=== PATIENT | male | born 1985 | race Caucasian/White ===

== ENCOUNTER 2022-06-26 08:39 | Outpatient (REF) | payer OTHER, SELFPAY ==
[2022-06-26 09:10] LABS: MANUAL DIFF FLAG NO
[2022-06-26 09:39] LABS: Basophils Absolute Auto 0.1 X10*3/uL (0.0-0.2); Basophils Percent Auto 0.7 % (0-2); Eosinophils Absolute Auto 0.1 X10*3/uL (0.0-0.4); Eosinophils Percent Auto 1.2 % (0-4); Hematocrit 43.5 % (42.0-52.0); Hemoglobin 14.4 g/dl (14.0-18.0); Imm Gran Abs Auto 0.03 X10*3/uL (0.00-0.03); Imm Gran Pct Auto 0.3 % (0.0-0.4); Lymphocytes Absolute Auto 1.7 X10*3/uL (1.2-4.9); Lymphocytes Percent Auto 16.6 % (20-40); Mean Corpuscular HGB Conc 33.1 g/dl (31.0-36.0); Mean Corpuscular Hemoglobin 28.9 pg (27.0-33.0); Mean Corpuscular Volume 87.3 fL (80.0-98.0); Monocytes Absolute Auto 0.7 X10*3/uL (0.1-1.2); Monocytes Percent Auto 6.6 % (2-11); Neutrophils Absolute Auto 7.7 x10*3/uL (2.0-8.3); Neutrophils Percent Auto 74.6 % (45-73); Platelet Count 232 X10*3/uL (160-400); Red Blood Count 4.98 X10*6/uL (4.60-5.80); Red Cell Distribution Width 11.9 % (11.0-16.0); White Blood Count 10.3 X10*3/uL (4.8-10.8)
[2022-06-26 09:43] LABS: Estimated Average Glucose 103 mg/dL; Hemoglobin A1c % 5.2 %
[2022-06-26 10:28] LABS: Anion Gap 10 (12-20); Chloride 107 mmol/L (96-108); Thyroid Stimulating Hormone 2.24 uIU/mL (0.32-4.0); Vitamin D 25-OH Total 12.4 ng/mL (>30)
[2022-06-26 10:31] LABS: Alanine Aminotransferase 34 U/L (0-40); Albumin Level 4.4 g/dL (3.5-5.0); Alkaline Phosphatase 51 U/L (39-117); Aspartate Amino Transferase 22 U/L (5-37); Bilirubin Total 0.7 mg/dL (0.0-1.0); Blood Urea Nitrogen 10 mg/dL (9-16); Calcium 9.3 mg/dL (8.4-10.2); Carbon Dioxide 28 mmol/L (22-29); Cholesterol 175 mg/dL; Estimated Glomerular Filt Rate > 60; Glucose Random 104 mg/dL (60-115); HDL Cholesterol 46 mg/dL; LDL Cholesterol Calculated 117 mg/dl; Potassium 4.3 mmol/L (3.3-5.1); Sodium 141 mmol/L (135-145); Total Protein 6.9 g/dL (6.5-8.0); Triglycerides 63 mg/dL
[2022-06-26 11:41] LABS: Appearance Urine Clear; Color Urine Yellow; Glucose Urine UA Negative (Negative); Leukocyte Esterase Urine Negative (Negative); Nitrite Urine Negative (Negative); PH 6.5 (5.0-9.0); Urine Blood Negative (Negative); Urine Ketones Negative (Negative); Urine Protein Negative (Neg-Trace)
== END 2022-06-26 08:40 | disposition home or self-care (01) ==
LOC: HO.LAB 08:39
PROVIDERS: PCP Nurse Practitioner Acute Care; Visit Provider Nurse Practitioner Acute Care
DX: Z00.00 Encounter for general adult medical examination without abnormal findings (principal); E78.5 Hyperlipidemia, unspecified; E03.9 Hypothyroidism, unspecified; R73.03 Prediabetes; E55.9 Vitamin D deficiency, unspecified
CPT/HCPCS: 36415; 80053; 80061; 81003; 82306; 83036; 84443; 85025

== ENCOUNTER 2023-10-03 09:38 | Outpatient (REF) | payer OTHER, SELFPAY ==
[2023-10-03 10:11] LABS: MANUAL DIFF FLAG NO
[2023-10-03 10:30] LABS: Basophils Percent Auto 0.8 % (0-2); Eosinophils Absolute Auto 0.1 X10*3/uL (0.0-0.4); Eosinophils Percent Auto 1.4 % (0-4); Hematocrit 44.1 % (42.0-52.0); Hemoglobin 14.9 g/dl (14.0-18.0); Imm Gran Abs Auto 0.01 X10*3/uL (0.00-0.03); Imm Gran Pct Auto 0.2 % (0.0-0.4); Lymphocytes Absolute Auto 1.5 X10*3/uL (1.2-4.9); Lymphocytes Percent Auto 30.1 % (20-40); Mean Corpuscular HGB Conc 33.8 g/dl (31.0-36.0); Mean Corpuscular Hemoglobin 29.4 pg (27.0-33.0); Mean Corpuscular Volume 87.2 fL (80.0-98.0); Mean Platelet Volume 9.9 fL (9.4-12.4); Monocytes Absolute Auto 0.4 X10*3/uL (0.1-1.2); Neutrophils Percent Auto 59.5 % (45-73); Platelet Count 211 X10*3/uL (160-400); Red Blood Count 5.06 X10*6/uL (4.60-5.80); Red Cell Distribution Width 11.9 % (11.0-16.0); White Blood Count 5.1 X10*3/uL (4.8-10.8)
[2023-10-03 10:45] LABS: Appearance Urine Clear; Color Urine Yellow; Glucose Urine UA Negative (Negative); Leukocyte Esterase Urine Negative (Negative); Nitrite Urine Negative (Negative); PH 6.5 (5.0-9.0); Specific Gravity - Urine 1.015 (1.005-1.025); Urine Blood Negative (Negative); Urine Ketones Negative (Negative); Urine Protein Negative (Neg-Trace)
[2023-10-03 11:17] LABS: Alanine Aminotransferase 44 U/L (0-40); Albumin Level 4.5 g/dL (3.5-5.0); Alkaline Phosphatase 54 U/L (39-117); Anion Gap 12 (12-20); Aspartate Amino Transferase 27 U/L (5-37); Bilirubin Total 0.8 mg/dL (0.0-1.0); Blood Urea Nitrogen 12 mg/dL (9-16); Calcium 9.7 mg/dL (8.4-10.2); Carbon Dioxide 27 mmol/L (22-29); Chloride 106 mmol/L (96-108); Cholesterol 195 mg/dL (<200); Estimated Glomerular Filt Rate > 60; Glucose Random 108 mg/dL (60-115); HDL Cholesterol 57 mg/dL (>40); LDL Cholesterol Calculated 122 mg/dL (<100); Potassium 4.1 mmol/L (3.3-5.1); Sodium 141 mmol/L (135-145); Total Protein 7.4 g/dL (6.5-8.0); Triglycerides 82 mg/dL (<150)
[2023-10-03 11:40] LABS: Thyroid Stimulating Hormone 1.44 uIU/mL (0.32-4.0); Vitamin D 25-OH Total 27.6 ng/mL (>30)
== END 2023-10-03 09:39 | disposition home or self-care (01) ==
LOC: HO.LAB 09:38
PROVIDERS: Visit Provider Nurse Practitioner Acute Care
DX: Z00.00 Encounter for general adult medical examination without abnormal findings (principal); E55.9 Vitamin D deficiency, unspecified; E78.5 Hyperlipidemia, unspecified
CPT/HCPCS: 36415; 80053; 80061; 81003; 82306; 84443; 85025

== ENCOUNTER 2023-10-15 14:59 | Outpatient (REF) | payer OTHER, SELFPAY ==
--- NOTE | ~2023-10-15 | XR_ITS ---
EXAMINATION: XR LUMBOSACRAL SPINE CLINICAL INFORMATION: Back pain COMPARISON: None available. TECHNIQUE: Three views of the lumbosacral spine. FINDINGS: Some mild scoliosis convex to the left. Disc spaces and vertebral body heights are well preserved. Multiple calculi are seen overlying the left kidney the largest measuring about 3 mm in size. Bowel gas pattern is unremarkable. XR/XR lumbar spine 2-3V IMPRESSION: 1. Mild scoliosis. 2. Left-sided nephrolithiasis.
== END 2023-10-15 15:00 | disposition home or self-care (01) ==
LOC: HO.XRAY 14:59
PROVIDERS: Visit Provider Physician Assistant Medical
DX: M54.9 Dorsalgia, unspecified (principal)
CPT/HCPCS: 72100

== ENCOUNTER 2024-10-19 10:47 | Outpatient (REF) | payer OTHER, SELFPAY ==
[2024-10-19 11:06] LABS: MANUAL DIFF FLAG NO
[2024-10-19 11:29] LABS: Basophils Percent Auto 0.5 % (0-2); Eosinophils Absolute Auto 0.1 X10*3/uL (0.0-0.4); Eosinophils Percent Auto 1.6 % (0-4); Hematocrit 40.7 % (42.0-52.0); Hemoglobin 13.6 g/dl (14.0-18.0); Imm Gran Abs Auto 0.02 X10*3/uL (0.00-0.03); Imm Gran Pct Auto 0.4 % (0.0-0.4); Lymphocytes Absolute Auto 1.3 X10*3/uL (1.2-4.9); Lymphocytes Percent Auto 23.8 % (20-40); Mean Corpuscular HGB Conc 33.4 g/dl (31.0-36.0); Mean Corpuscular Hemoglobin 29.8 pg (27.0-33.0); Mean Corpuscular Volume 89.1 fL (80.0-98.0); Mean Platelet Volume 9.7 fL (9.4-12.4); Monocytes Absolute Auto 0.4 X10*3/uL (0.1-1.2); Monocytes Percent Auto 7.3 % (2-11); Neutrophils Absolute Auto 3.7 x10*3/uL (2.0-8.3); Neutrophils Percent Auto 66.4 % (45-73); Platelet Count 219 X10*3/uL (160-400); Red Blood Count 4.57 X10*6/uL (4.60-5.80); Red Cell Distribution Width 12.4 % (11.0-16.0); White Blood Count 5.5 X10*3/uL (4.8-10.8)
[2024-10-19 11:58] LABS: Appearance Urine Clear; Color Urine Yellow; Glucose Urine UA Negative (Negative); Leukocyte Esterase Urine Negative (Negative); Nitrite Urine Negative (Negative); Specific Gravity - Urine 1.015 (1.005-1.025); Urine Blood Negative (Negative); Urine Ketones Negative (Negative); Urine Protein Negative (Neg-Trace)
[2024-10-19 12:01] LABS: Estimated Average Glucose 103 mg/dL; Hemoglobin A1C 120.6673 umol/L; Hemoglobin A1c % 5.2 % (<6.0); Total Hemoglobin (HGBA1C) 3611.2163 umol/L
[2024-10-19 12:01] LABS: Bacteria Urine None Seen (None Seen); Hyaline Casts Urine 0-2 /LPF (0-2); RBC Urine 0-2 /HPF (0-2); Squamous Epithelial Cell Urine 0-2 /HPF (0-2); WBC Urine 0-5 /HPF (0-5)
--- OUTSIDE RECORDS SUMMARY | 2024-10-19 12:15 | XMS_ITS | Patient Health Record ---
Author Organization [facility] Address [address] [place] [id number] Care Team Providers Care Manager Residential Name Role Phone FARHAN MCGREGOR Unavailable [phone] IRMA JACOBO Unavailable [phone] ALLERGIES Allergen (clinical drug ingredient) Drug/Non Drug Allergy documented on EMR Reaction Allergy Type Onset Date Status Dust Mites Unknown Allergy Active Mold Unknown Allergy Active REASON FOR REFERRAL Reason PPSP referral needed following x-ray, Pt is experiencing discomfort due to scoliosis. Diagnosis 1 Mild scoliosis (M41. 9) Referral Organization [facility] Referring Provider First Name [facility] Referring Provider Last Name CATARINO Referring Provider Speciality Internal M edicine Referred Provider Specialty Physical Med icine General Notes faxed over completed PSSP form over to [place] at [phone], phone- [phone] Clinical Notes Unique Cervantes 11/03 01:51:35 PM > Referral Priority Routine Diagnosis 1 Varicose veins of lo wer extremity, unspecified laterality, unspecified whether complicated (I83.90) Referral Organization [facility] Referring Provider First Name [facility] Referring Provider Last Name CATARINO Referring Provider Speciality Internal M edicine Referred Provider Specialty Venereologis t General Notes filled out [facility] form and faxed , fax- [phone] Clinical Notes Unique Cervantes 03/04 02:29:51 PM >, Ayse Venegas 03/09/2024 09:29:52 AM > The patient is scheduled for an appointment on 03/20/2024 at 10:30 am Referral Priority Routine Diagnosis 1 Renal stone (N20.0) Referral Organization [facility] Referring Provider First Name [facility] Referring Provider Last Name CATARINO Referring Provider Speciality Internal M edicine Referred Provider Zack Leo Referred Provider Specialty Urology General Notes Pt needing referral for urologist due to renal stones Clinical Notes Unique Cervantes 03/04 02:38:57 PM >, faxed with [facility] [address] [place] [address] , phone- [phone], fax- [phone], Ayse Venegas 03/09/2024 11:03:16 AM > I called the office, and they informed me that they left messages on the patient's voicemail but have not received a callback Referral Priority Routine Reason [facility] Diagnosis 1 Varicose veins of lo wer extremity, unspecified laterality, unspecified whether complicated (I83.90) Referral Organization [facility] Referring Provider First Name [facility] Referring Provider Last Name [facility] Referring Provider Speciality Internal edicine Referred Provider Specialty Venereologis t General Notes faxed [facility] appt request form with attachments to , [facility] , fax - [phone] Clinical Notes Unique Cervantes 04/09 09:12:03 AM >, pt is aware referral was sent, Ayse Venegas 04/13/2024 04:16:55 PM > The office confirmed receipt of the referral and they are gonna call him soon. I also spoke with the patient and provided [facility]'s phone number , Unique Cervantes 04/16/2024 03:04:45 PM >, Pt has been scheduled for a vericose vein consult on 07/30/24 with james epstein NP. , [facility] Referral Priority Routine MEDICATIONS Medication SIG (Take, Route, Frequency, Duration) Notes Start Date End Date Status Amphetamine-Dextroampheta mine 5 MG 1 tablet in afternoon Orally once a day for 30 days 09/30/2024 Active Adderall 10 MG 1 tablet Orally cecille y for 30 days 09/30/2024 Active Fluticasone Propionate 50 MCG/ACT 1 spray in each nostril Nasally Once a day for 30 day(s) Not-Taking PROBLEMS Problem Type ICD Code Onset Dates Problem Status W/U Status Risk SNOMED Code Notes Problem Vitamin D deficiency, unspecified (E55.9) Active confirmed Vitamin D deficiency (66465279) Problem Encounter for general adult medical examination without abnormal findings (Z00.00) Active confirmed Adult heal th examination (960365509) Problem Contact with and (suspected) exposure to other viral communicable diseases (Z20.828) Active confirmed Exposure to communicable disease (759569151) Problem Prediabetes (R73.03) Active confirmed Prediabetes (047122157) Problem Hyperlipidemia, unspecified hyperlipidemia type (E78.5) Active confirmed Hyperlipidaemia (31160884) Problem Acquired hypothyroidism (E03.9) Active confirmed 368501612 Problem Hypothyroidism, unspecified type (E03.9) Active confirmed Hypothyroidism (77784856) Problem Varicose veins of lower extremity, unspecified laterality, unspecified whether complicated (I83.90) Active confirmed 54111705 Problem Seasonal allergies (J30.2) Active confirmed Seasonal a llergy (098767501) Problem Renal stone (N20.0) Active confirmed 06903426 Problem Type 2 diabetes mellitus without complication, without long-term current use of insulin (E11.9) Active confirmed 575027104 Problem Dyslipidemia (E78.5) Active confirmed 647733937 Problem Attention deficit hyperactivity disorder (ADHD), predominantly hyperactive type (F90.1) Active confirmed 068282404 Problem Attention deficit disorder (ADD) in adult (F98.8) Active confirmed Adult attentio n deficit hyperactivity disorder (disorder) (030889848) Problem Seasonal allergic rhinitis, unspecified trigger (J30.2) Active confirmed 478550142 Problem Acute sore throat (J02.9) Active confirmed Acute pharyngit is (755995190) Problem Mild scoliosis (M41.9) Active confirmed 789546825 VITAL SIGNS Heart Rate 88 /min 07/13/2024 Blood pressure diastolic 82 mm Hg 07/13/2024 Oximetry 99 % 07/13/2024 Height 69 in 07/13/2024 Blood pressure systolic 124 mm Hg 07/13/2024 Weight 181 lbs 07/13/2024 BMI 26.73 kg/m2 07/13/2024 Encounters Encounter Location Date Provider Diagnosis [facility] [address] [facility] [address] [place] [address] 01/09/2024 FARHAN MCGREGOR [place] [address] [address] 01/06/2024 FARHAN MCGREGOR Attention deficit hyperactivity disorder (ADHD), predominantly hyperactive type F90.1 ; Seasonal allergic rhinitis, unspecified trigger J30.2 ; Hyperlipidemia, unspecified hyperlipidemia type E78.5 and Type 2 diabetes mellitus without complication, without long-term current use of insulin E11.9 [place] [address] 01/31/2024 FARHAN MCGREGOR Attention deficit hyperactivity disorder (ADHD), predominantly hyperactive type F90.1 ; Seasonal allergic rhinitis, unspecified trigger J30.2 ; Hyperlipidemia, unspecified hyperlipidemia type E78.5 ; Acute sore throat J02.9 and Contact with and (suspected) exposure to other viral communicable diseases Z20.828 [place] [address] 07/13/2024 FARHAN MCGREGOR Encounter for genera l adult medical examination without abnormal findings Z00.00 ; Attention deficit hyperactivity disorder (ADHD), predominantly hyperactive type F90.1 ; Nasal septal deviation J34.2 ; Seasonal allergic rhinitis, unspecified trigger J30.2 and Hyperlipidemia, unspecified hyperlipidemia type E78.5 [place] [address] 10/22/2023 FARHAN MCGREGOR Encounter for genera l adult medical examination without abnormal findings Z00.00 and Seasonal allergic rhinitis, unspecified trigger J30.2 [place] [address] 11/01/2023 FARHAN MCGREGOR [place] [address] 11/22/2023 FARHAN MCGREGOR Seasonal allergic rhinitis, unspecified trigger J30.2 and Encounter for general adult medical examination without abnormal findings Z00.00 [address] 12/26/2023 FARHAN MCGREGOR [facility] [address] 12/30/2023 FARHAN MCGREGOR Seasonal allergic rhinitis, unspecified trigger J30.2 and Encounter for general adult medical examination without abnormal findings Z00.[address] [facility] [address] [facility] [address] [place] [address] 01/31/2024 FARHAN BORHOT Encounter for genera l adult medical examination without abnormal findings Z00.00 and Seasonal allergic rhinitis, unspecified trigger J30.[address] [facility] [address] [facility] [address] [place] [address] 03/04/2024 FARHAN BORHOT Encounter for genera l adult medical examination without abnormal findings Z00.00 and Seasonal allergic rhinitis, unspecified trigger J30.2 [facility] [address] [place] [address] 03/06/[address] [facility] [address] [facility] [address] [facility] [address] [place] [address] 04/03/2024 FARHAN BORHOT Encounter for genera l adult medical examination without abnormal findings Z00.00 and Seasonal allergic rhinitis, unspecified trigger J30.2 [address] [facility] [address] [place] [address] 04/07/[address] [facility] [facility] [address] [facility] [address] [place] [address] 05/07/2024 FARHAN BORHOT Encounter for genera l adult medical examination without abnormal findings Z00.00 [address] [facility] [address] [place] [address] 05/07/2024 FARHAN BORHOT Encounter for genera l adult medical examination without abnormal findings Z00.[address] [facility] [address] [facility] [address] [place] [address] 06/09/2024 FARHAN BORHOT Encounter for genera l adult medical examination without abnormal findings Z00.[address] [facility] [address] [facility] [address] [place] [address] 06/11/2024 FARHAN BORHOT Encounter for genera l adult medical examination without abnormal findings Z00.00 [facility] [address] [place] [address] 08/10/[address] [facility] [address] [facility] [address] [facility] [address] [place] [address] 07/23/2024 JACOBO SOLIS Encounter for genera l adult medical examination without abnormal findings Z00.[address] [facility] [address] [address] 07/26/2024 FARHAN BORHOT Seasonal allergic rhinitis, unspecified trigger J30.[address] [facility] [address] [place] [address] 08/26/2024 FARHAN BORHOT Seasonal allergic rhinitis, unspecified trigger J30.[address] [facility] [address] [address] 08/26/2024 FARHAN BORHOT Encounter for genera l adult medical examination without abnormal findings Z00.[address] [facility] [address] [place] [address] 09/30/2024 FARHAN BORHOT Seasonal allergic rhinitis, unspecified trigger J30.[address] [facility] [address] [place] [address] 09/30/2024 FARHAN BORHOT Encounter for genera l adult medical examination without abnormal findings Z00.00 ASSESSMENTS Encounter Date Diagnosis Assessment Notes Treatment Notes Treatment Clinical Notes Section Notes 10/22/2023 Encounter for general adult medical examination without abnormal findings (ICD-10 - Z00.00) 11/22/2023 Seasonal allergic rhinitis, unspecified trigger (ICD-10 - J30.2) 12/30/2023 Seasonal allergic rhinitis, unspecified trigger (ICD-10 - J30.2) 01/06/2024 Attention deficit hyperactivity disorder (ADHD), predominantly hyperactive type (ICD-10 - F90.1) Chronic conditions are stable [facility] Prescription monitoring program reviewed Including controlled substances prescriptive history Will see him back in June for physical with labs Of note, some information is being carried forward from prior records for informational purposes only and is being cited so that efficiency, safety and quality of the patient's care is not compromised This note was prepared using voice recognition software and direct typing Please excuse inadvertent food science technician or typing errors, or uncorrected word substitutions Although every attempt has been made by the provider to proofread this document, occasional misspellings and typographical errors may still be present Due to the previous pandemic, and the use of personal protective equipment (PPE) This may decrease voice recognition accuracy Inadvertent food science technician errors may occur 01/06/2024 Seasonal allergic rhinitis, unspecified trigger (ICD-10 - J30.2) Chronic conditions are stable [facility] Prescription monitoring program reviewed Including controlled substances prescriptive history Will see him back in June for physical with labs Of note, some information is being carried forward from prior records for informational purposes only and is being cited so that efficiency, safety and quality of the patient's care is not compromised This note was prepared using voice recognition software and direct typing Please excuse inadvertent food science technician or typing errors, or uncorrected word substitutions Although every attempt has been made by the provider to proofread this document, occasional misspellings and typographical errors may still be present Due to the previous pandemic, and the use of personal protective equipment (PPE) This may decrease voice recognition accuracy Inadvertent food science technician errors may occur 01/31/2024 Attention deficit hyperactivity disorder (ADHD), predominantly hyperactive type (ICD-10 - F90.1) Acute Concerns/Problem List: 01/31/2024 Chronic conditions are stable ENT referral for septal deviation left-sided 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 Urology for renal stones Discussed supportive care likely viral syndrome [facility] Prescription monitoring program reviewed Including controlled substances prescriptive history Will see him back in June for physical with labs Of note, some information is being carried forward from prior records for informational purposes only and is being cited so that efficiency, safety and quality of the patient's care is not compromised This note was prepared using voice recognition software and direct typing Please excuse inadvertent food science technician or typing errors, or uncorrected word substitutions Although every attempt has been made by the provider to proofread this document, occasional misspellings and typographical errors may still be present Due to the previous pandemic, and the use of personal protective equipment (PPE) This may decrease voice recognition accuracy Inadvertent food science technician errors may occur 01/31/2024 Seasonal allergic rhinitis, unspecified trigger (ICD-10 - J30.2) Acute Concerns/Problem List: 01/31/2024 Chronic conditions are stable ENT referral for septal deviation left-sided 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 Urology for renal stones Discussed supportive care likely viral syndrome [facility] Prescription monitoring program reviewed Including controlled substances prescriptive history Will see him back in June for physical with labs Of note, some information is being carried forward from prior records for informational purposes only and is being cited so that efficiency, safety and quality of the patient's care is not compromised This note was prepared using voice recognition software and direct typing Please excuse inadvertent food science technician or typing errors, or uncorrected word substitutions Although every attempt has been made by the provider to proofread this document, occasional misspellings and typographical errors may still be present Due to the previous pandemic, and the use of personal protective equipment (PPE) This may decrease voice recognition accuracy Inadvertent food science technician errors may occur 01/31/2024 Encounter for general adult medical examination without abnormal findings (ICD-10 - Z00.00) 03/04/2024 Encounter for general adult medical examination without abnormal findings (ICD-10 - Z00.00) 04/03/2024 Encounter for general adult medical examination without abnormal findings (ICD-10 - Z00.00) 05/07/2024 Encounter for general adult medical examination without abnormal findings (ICD-10 - Z00.00) 05/07/2024 Encounter for general adult medical examination without abnormal findings (ICD-10 - Z00.00) 06/09/2024 Encounter for general adult medical examination without abnormal findings (ICD-10 - Z00.00) 06/11/2024 Encounter for general adult medical examination without abnormal findings (ICD-10 - Z00.00) 07/13/2024 Encounter for general adult medical examination without abnormal findings (ICD-10 - Z00.00) Plans on potential septoplasty and early 2024 Did see ENT surgery as well as will be seeing [facility] ADHD controlled on medications _update labs please Of note, some information is being carried forward from prior records for informational purposes only and is being cited so that efficiency, safety and quality of the patient's care is not compromised This note was prepared using voice recognition software and direct typing Please excuse inadvertent food science technician or typing errors, or uncorrected word substitutions Although every attempt has been made by the provider to proofread this document, occasional misspellings and typographical errors may still be present Due to the previous pandemic, and the use of personal protective equipment (PPE) This may decrease voice recognition accuracy Inadvertent food science technician errors may occur 07/23/2024 Encounter for general adult medical examination without abnormal findings (ICD-10 - Z00.00) 07/26/2024 Seasonal allergic rhinitis, unspecified trigger (ICD-10 - J30.2) 08/26/2024 Seasonal allergic rhinitis, unspecified trigger (ICD-10 - J30.2) 08/26/2024 Encounter for general adult medical examination without abnormal findings (ICD-10 - Z00.00) 09/30/2024 Seasonal allergic rhinitis, unspecified trigger (ICD-10 - J30.2) 09/30/2024 Encounter for general adult medical examination without abnormal findings (ICD-10 - Z00.00) 07/13/2024 Attention deficit hyperactivity disorder (ADHD), predominantly hyperactive type (ICD-10 - F90.1) Plans on potential septoplasty and early 2024 Did see ENT surgery as well as will be seeing [facility] ADHD controlled on medications _update labs please Of note, some information is being carried forward from prior records for informational purposes only and is being cited so that efficiency, safety and quality of the patient's care is not compromised This note was prepared using voice recognition software and direct typing Please excuse inadvertent food science technician or typing errors, or uncorrected word substitutions Although every attempt has been made by the provider to proofread this document, occasional misspellings and typographical errors may still be present Due to the previous pandemic, and the use of personal protective equipment (PPE) This may decrease voice recognition accuracy Inadvertent food science technician errors may occur 07/13/2024 Nasal septal deviation (ICD-10 - J34.2) Plans on potential septoplasty and early 2024 Did see ENT surgery as well as will be seeing [facility] ADHD controlled on medications _update labs please Of note, some information is being carried forward from prior records for informational purposes only and is being cited so that efficiency, safety and quality of the patient's care is not compromised This note was prepared using voice recognition software and direct typing Please excuse inadvertent food science technician or typing errors, or uncorrected word substitutions Although every attempt has been made by the provider to proofread this document, occasional misspellings and typographical errors may still be present Due to the previous pandemic, and the use of personal protective equipment (PPE) This may decrease voice recognition accuracy Inadvertent food science technician errors may occur 04/03/2024 Seasonal allergic rhinitis, unspecified trigger (ICD-10 - J30.2) 03/04/2024 Seasonal allergic rhinitis, unspecified trigger (ICD-10 - J30.2) 01/31/2024 Seasonal allergic rhinitis, unspecified trigger (ICD-10 - J30.2) 01/31/2024 Hyperlipidemia, unspecified hyperlipidemia type (ICD-10 - E78.5) Acute Concerns/Problem List: 01/31/2024 Chronic conditions are stable ENT referral for septal deviation left-sided 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 Urology for renal stones Discussed supportive care likely viral syndrome [facility] Prescription monitoring program reviewed Including controlled substances prescriptive history Will see him back in June for physical with labs Of note, some information is being carried forward from prior records for informational purposes only and is being cited so that efficiency, safety and quality of the patient's care is not compromised This note was prepared using voice recognition software and direct typing Please excuse inadvertent food science technician or typing errors, or uncorrected word substitutions Although every attempt has been made by the provider to proofread this document, occasional misspellings and typographical errors may still be present Due to the previous pandemic, and the use of personal protective equipment (PPE) This may decrease voice recognition accuracy Inadvertent food science technician errors may occur 01/06/2024 Hyperlipidemia, unspecified hyperlipidemia type (ICD-10 - E78.5) Chronic conditions are stable [facility] Prescription monitoring program reviewed Including controlled substances prescriptive history Will see him back in June for physical with labs Of note, some information is being carried forward from prior records for informational purposes only and is being cited so that efficiency, safety and quality of the patient's care is not compromised This note was prepared using voice recognition software and direct typing Please excuse inadvertent food science technician or typing errors, or uncorrected word substitutions Although every attempt has been made by the provider to proofread this document, occasional misspellings and typographical errors may still be present Due to the previous pandemic, and the use of personal protective equipment (PPE) This may decrease voice recognition accuracy Inadvertent food science technician errors may occur 12/30/2023 Encounter for general adult medical examination without abnormal findings (ICD-10 - Z00.00) 10/22/2023 Seasonal allergic rhinitis, unspecified trigger (ICD-10 - J30.2) 11/22/2023 Encounter for general adult medical examination without abnormal findings (ICD-10 - Z00.00) 01/06/2024 Type 2 diabetes mellitus without complication, without long-term current use of insulin (ICD-10 - E11.9) Chronic conditions are stable [facility] Prescription monitoring program reviewed Including controlled substances prescriptive history Will see him back in June for physical with labs Of note, some information is being carried forward from prior records for informational purposes only and is being cited so that efficiency, safety and quality of the patient's care is not compromised This note was prepared using voice recognition software and direct typing Please excuse inadvertent food science technician or typing errors, or uncorrected word substitutions Although every attempt has been made by the provider to proofread this document, occasional misspellings and typographical errors may still be present Due to the previous pandemic, and the use of personal protective equipment (PPE) This may decrease voice recognition accuracy Inadvertent food science technician errors may occur 01/31/2024 Acute sore throat (ICD-10 - J02.9) Acute Concerns/Problem List: 01/31/2024 Chronic conditions are stable ENT referral for septal deviation left-sided 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 Urology for renal stones Discussed supportive care likely viral syndrome [facility] Prescription monitoring program reviewed Including controlled substances prescriptive history Will see him back in June for physical with labs Of note, some information is being carried forward from prior records for informational purposes only and is being cited so that efficiency, safety and quality of the patient's care is not compromised This note was prepared using voice recognition software and direct typing Please excuse inadvertent food science technician or typing errors, or uncorrected word substitutions Although every attempt has been made by the provider to proofread this document, occasional misspellings and typographical errors may still be present Due to the previous pandemic, and the use of personal protective equipment (PPE) This may decrease voice recognition accuracy Inadvertent food science technician errors may occur 07/13/2024 Seasonal allergic rhinitis, unspecified trigger (ICD-10 - J30.2) Plans on potential septoplasty and early 2024 Did see ENT surgery as well as will be seeing [facility] ADHD controlled on medications _update labs please Of note, some information is being carried forward from prior records for informational purposes only and is being cited so that efficiency, safety and quality of the patient's care is not compromised This note was prepared using voice recognition software and direct typing Please excuse inadvertent food science technician or typing errors, or uncorrected word substitutions Although every attempt has been made by the provider to proofread this document, occasional misspellings and typographical errors may still be present Due to the previous pandemic, and the use of personal protective equipment (PPE) This may decrease voice recognition accuracy Inadvertent food science technician errors may occur 07/13/2024 Hyperlipidemia, unspecified hyperlipidemia type (ICD-10 - E78.5) Plans on potential septoplasty and early 2024 Did see ENT surgery as well as will be seeing [facility] ADHD controlled on medications _update labs please Of note, some information is being carried forward from prior records for informational purposes only and is being cited so that efficiency, safety and quality of the patient's care is not compromised This note was prepared using voice recognition software and direct typing Please excuse inadvertent food science technician or typing errors, or uncorrected word substitutions Although every attempt has been made by the provider to proofread this document, occasional misspellings and typographical errors may still be present Due to the previous pandemic, and the use of personal protective equipment (PPE) This may decrease voice recognition accuracy Inadvertent food science technician errors may occur 01/31/2024 Contact with and (suspected) exposure to other viral communicable diseases (ICD-10 - Z20.828) Acute Concerns/Problem List: 01/31/2024 Chronic conditions are stable ENT referral for septal deviation left-sided 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 Urology for renal stones Discussed supportive care likely viral syndrome [facility] Prescription monitoring program reviewed Including controlled substances prescriptive history Will see him back in June for physical with labs Of note, some information is being carried forward from prior records for informational purposes only and is being cited so that efficiency, safety and quality of the patient's care is not compromised This note was prepared using voice recognition software and direct typing Please excuse inadvertent food science technician or typing errors, or uncorrected word substitutions Although every attempt has been made by the provider to proofread this document, occasional misspellings and typographical errors may still be present Due to the previous pandemic, and the use of personal protective equipment (PPE) This may decrease voice recognition accuracy Inadvertent food science technician errors may occur PLAN OF TREATMENT Pending Test Test Name Order Date 25OH VITAMIN D 06/12/2022 25OH VITAMIN D 07/12/2023 CBC (COMPLETE BLOOD COUNT) 06/12/2022 CBC (COMPLETE BLOOD COUNT) WITH DIFF COMPREHENSIVE METABOLIC PANEL 07/12/2023 COMPREHENSIVE METABOLIC PANEL 06/12/2022 COMPREHENSIVE METABOLIC PANEL 01/06/2024 HEMOGLOBIN A1C 06/12/2022 LIPID PANEL 06/12/2022 LIPID PANEL 07/12/2023 LIPID PANEL 01/06/2024 TSH 07/12/2023 TSH 06/12/2022 URINALYSIS W/REFLEX CULTURE 07/12/2023 XR C-Spine 4+ Views 05/03/2022 CBC (INCLUDES DIFF/PLT) 01/06/2024 URINALYSIS, COMPLETE 01/06/2024 HEMOGLOBIN A1c 01/06/2024 TSH 01/06/2024 VITAMIN D, 1,25 DIHYDROXY LC/MS/MS 01/05 COMPLETE URINALYSIS 06/12/2022 Shoulder Min 2 Views Left 07/10/2022 Elbow Min 3 Views Left 07/10/2022 Next Appt Details Provider Name:FARHAN MCGREGOR, 11/24/2024 11:15:00 AM, [address] [facility], [facility] [[email or web address] [address], [place], [address], Insurance Providers Payer Name Payer Address Payer Phone Subscriber Number Group Number Insured Name Patient Relationship to Insured Coverage Start Date Coverage End Date Cigna [address] [facility] [place] [address] [id number] KORINA CANNON Self - patient is the insured 2022 MEDICAL (GENERAL) HISTORY Medical History History ICD Code Attention deficit disorder (ADD) in adul t F98.8 Seasonal allergies J30.2
--- OUTSIDE RECORDS SUMMARY | 2024-10-19 12:15 | XMS_ITS ---
Author Organization [employer] [facility] Address [address] [place] [address] Care Team Providers Care Molding Associate Name Role Phone FARHAN MCGREGOR Unavailable [phone] REASON FOR VISIT New Refill Request MEDICATIONS Medication SIG (Take, Route, Fr equency, Duration) Notes Start Date End Date Status Adderall 10 MG 1 tablet Orally daily for 30 days 0 09/30/2024 Active Encounters Encounter Location Date Provider Diagnosis [address] [address] 09/30/2024 FARHAN CUEVASYrn Seasonal allergic rhinitis, unspecified trigger J30.2 ASSESSMENTS Encounter Date Diagnosis Assessment Notes Treatment Notes Treatment Clinical Notes Section Notes 09/30/2024 Seasonal allergic rhinitis, unspecified trigger (ICD-10 - J30.2) PLAN OF TREATMENT Medication Medication Name Sig Start Date Stop Date Notes Adderall 10 MG 1 tablet Orally daily for 30 days Next Appt Details Provider Name:FARHAN MCGREGOR, 11/24/2024 11:15:00 AM, [address] [place] [address], [address], Progress Notes * GENEVIEVE CANNONOB:[birth year] (39 yo M)Acc No.[id number]:09/30/2024 Patient:??KORINA CANNON :1985?Age:39 Y?Sex:Trupti monique Address:[address] [place] [address] [address], [place], [place] * Refills?? Refill Adderall Tablet, 10 MG, Orally, 30 Tablet, 1 tablet, daily, 30 days, Refills=0 * true * Date:??
--- OUTSIDE RECORDS SUMMARY | 2024-10-19 12:15 | XMS_ITS ---
Author Organization [employer] [facility] Address [address] [place] [address] Care Team Providers Care Drier Name Role Phone FILIBERTOFARHAN MORALES Unavailable [phone] REASON FOR VISIT New Refill Request MEDICATIONS Medication SIG (Take, Route, Frequency, Duration) Notes Start Date End Date Status Amphetamine-Dextroamphetam ine 5 MG 1 tablet in afternoon Orally once a day for 30 days 09/30/2024 Active Encounters Encounter Location Date Provider Diagnosis [facility] [address] [facility] [address] [place] [address] 09/30/2024 FARHAN MCGREGOR Encounter for genera l adult medical examination without abnormal findings Z00.00 ASSESSMENTS Encounter Date Diagnosis Assessment Notes Treatment Notes Treatment Clinical Notes Section Notes 09/30/2024 Encounter for general adult medical examination without abnormal findings (ICD-10 - Z00.00) PLAN OF TREATMENT Medication Medication Name Sig Start Date Stop Date Notes Amphetamine-Dextroamphetamin e 5 MG 1 tablet in afternoon Orally once a day for 30 days 09/30/2024 Next Appt Details Provider Name:FARHAN MCGREGOR, 11/24/2024 11:15:00 AM, [address] [facility], [facility] [address], [place], [address], Progress Notes * NAVEEN CANNON:[birth year] (39 yo M)Acc No.[id number]:09/30/2024 Patient:??DAVISBENJAMINEL :1985?Age:39 Y?Sex:Trupti monique Address:[address] [place] [address], [address], [place], [place] * Refills?? Refill Amphetamine-Dextroamphetamine Tablet, 5 MG, Orally, 30 Tablet, 1 tablet in afternoon, once a day, 30 days, Refills=0 * true * Date:??
--- OUTSIDE RECORDS SUMMARY | 2024-10-19 12:16 | XMS_ITS ---
Author Organization [employer] [facility] Address [address] [place] [address] Care Team Providers Care Career Technical Education Teacher Name Role Phone FILIBERTOFARHAN MORALES Unavailable [phone] REASON FOR VISIT New Refill Request MEDICATIONS Medication SIG (Take, Route, Frequency, Duration) Notes Start Date End Date Status Amphetamine-Dextroamphetam ine 5 MG 1 tablet in afternoon Orally once a day for 30 days 08/26/2024 Active Encounters Encounter Location Date Provider Diagnosis [facility] [address] [facility] [address] [place] [address] 08/26/2024 FARHAN BORCARMEN Encounter for genera l adult medical examination without abnormal findings Z00.00 ASSESSMENTS Encounter Date Diagnosis Assessment Notes Treatment Notes Treatment Clinical Notes Section Notes 08/26/2024 Encounter for general adult medical examination without abnormal findings (ICD-10 - Z00.00) PLAN OF TREATMENT Medication Medication Name Sig Start Date Stop Date Notes Amphetamine-Dextroamphetamin e 5 MG 1 tablet in afternoon Orally once a day for 30 days 08/26/2024 Next Appt Details Provider Name:FARHAN MCGREGOR, 11/24/2024 11:15:00 AM, [address] [facility], [place] [address], [place], [address], Progress Notes * NAVEEN CANNON:[birth year] (39 yo M)Acc No.[id number]:08/26/2024 Patient:??DAVISBENJAMINEL :1985?Age:39 Y?Sex:Trupti monique Address:[address] [place] [address], [address], [place], [place] * Refills?? Refill Amphetamine-Dextroamphetamine Tablet, 5 MG, Orally, 30 Tablet, 1 tablet in afternoon, once a day, 30 days, Refills=0 * true * Date:??
--- OUTSIDE RECORDS SUMMARY | 2024-10-19 12:16 | XMS_ITS | Data Portability ---
Author Organization [place] - [facility] Address [address] [facility] [address] [place] [address] Care Team Providers Care Floor Nurse Name Role Phone FILIBERTOFARHAN MORALES Primary Care Provider Assessment Encounter Date Assessment Date Assessment LastModified by Organization Details LastModified Time 05/13/2024 05/13/2024 Patient is frustrated with his ongoing snoring. His recent sleep study was benign. Physical exam shows a columella moderately to the left and a high septal deflection to the right. I do not believe a septoplasty at this time would resolve the majority of his symptoms. He feels his snoring and sleep is made worse with significant headaches he experiences on the left side. He notes the headaches can be triggered and made worse during his physical therapy with various maneuvers where his head is positioned low or extended over a medicine ball. This may reflect tension headache, migraine variant. He also describes headaches are associated with retro-orbital pain and nasal congestion. I would like to proceed with a CT sinus to initially evaluate underlying anatomy. If there is no evidence of sinusitis he may benefit from migraine management, adjusting his physical therapy regimen to address tension headaches or may be working with neurology. For his snoring we will discuss in the future after sinus results possibility of oral appliance d[facility]os[facility] Not available 05/13/2024 16:04:47 06/15/2024 06/15/2024 He notes the headaches can be triggered and made worse during his physical therapy with various maneuvers where his head is positioned low or extended over a medicine ball. This may reflect tension headache, migraine variant. He also describes headaches are associated with retro-orbital pain and nasal congestion. CT sinus today showed no paranasal sinus disease. There was a prominent septal defection to right. I have offered for him to meet with one of my colleagues to discuss septoplasty. He is my [id number] and of course I would not perform a surgery for him. Snoring could consider oral appliance. [email or web address] Not available 06/15/2024 12:15:18 Plan of Treatment Reminders Order Date Submit Date Provider Last Modified By Organization Details Last Modified Time Details Appointments None recorded. Lab None recorded. Referral None recorded. Procedures None recorded. Surgeries None recorded. Imaging CT, sinuses, w/o contrast - xoran ct sinus 2023 [facility] [address], [address], 12:15:32 CT, sinuses, w/o contrast - xoran ct sinus 2023 [email or web address] [facility] [address], [address], 09:56:59 Medication Orders None recorded. Patient TargetsNo targets recorded. Patient InstructionsNo instructions recorded. Reason for Referral None Reported. Results Created Date Observation Date Name Description Value Unit Range Abnormal Flag Note LastModifiedBy Organization Detail LastModifiedTime 05/08/2004/21/2024 sleep study , diagn ostic (PROC ) No observ ation record ed. [facility] [address], [place], [address], 05/15/2024 12:58:12 05/13/20 CT, sinus es, w/o contr ast No observ ation record ed. [facility] [address], [address], 05/13/2024 15:58:28 06/13/20 CT, sinus es, w/o contr ast No observ ation record ed. [email or web address] [address], [address], 06/15/2024 12:15:18 06/20/20 24 06/15/2024 CT, sinus es, w/o contr ast No observ ation record ed. [facility] [address], [place], [address], 06/22/2024 08:34:59 Result Notes None recorded. Problems Name Problem SNOMED Code Status Onset Date Resolution Date Notes Provider Name and Address Organization Details Recorded Time Acute pansinusitis 1441812 Active 2020 Acute pansin usitis , unspec ified; Note: Date Diagno sed: 2020 5:37 PM (J01.4 0) Not Available [facility] 03:10:20 Tension-type headache 282022725 Active 2023 RAMY MELGAR MD [address] [facility] [place] [address], [place], [address] , [place] - [facility] [place] [facility] 15:57:31 Snoring 57397338 Active 2023 RAMY MELGAR MD [address] [facility] [place] [address], [place], [address] , [place] - [facility] [place] [facility] 15:57:45 Deviated nasal septum 275457723 Active 2023 RAMY MELGAR MD [address] [facility] [place] [address], [place], [address] , [place] - [facility] [place] [facility] 11:56:17 Hypertrophy of nasal turbinates 23532211 Active 2023 ASUNCION SAUCEDO MD [address] [facility] [place],[address], [place], [address] , [place] [facility] [place] 13:36:45 Nasal congestion 01811321 Active 2023 ASUNCION SAUCEDO MD [address] [facility] [place],[address], [place], [address] , [place] [facility] [place] 16:42:55 Problem Notes None recorded. Procedures Surgical History Date Name Laterality Status Provider Name and Address Organization Details Recorded Time 06/15/2024 CT sinus - Xoran completed RAMY MELGAR MD [address] [place] [address], [address], [place] - [facility] 06/13/2024 21:38:27 Imaging Results Imaging Date Name Status LastModified by [facility] Details LastModified Time 04/21/2024 sleep study, diagnostic (PROC) completed [facility] [place] [address] [place] [address], [place], [address], 05/15/2024 12:58:12 05/13/2024 CT, sinuses, w/o contrast completed [facility] [address], [address], 05/13/2024 15:58:28 06/13/2024 CT, sinuses, w/o contrast completed [facility] [address], [address], 06/15/2024 12:15:18 06/15/2024 CT, sinuses, w/o contrast [facility] [address], [address], 06/22/2024 08:34:59 Procedure Notes None recorded. Medical Equipment None Reported. Allergies No known drug allergies Medications Name Sig Start Date Stop Date Status Note LastModified by Organization Details LastModified Time cyclobenz aprine 10 mg tablet PLEASE SEE ATTACHED FOR DETAILED DIRECTIO NS 05/13 completed Not Available Not Available Not Available Augmentin 875 mg-125 mg tablet by mouth 05/13 completed Medicati on ID: [id number] D uration Value: 10 Brand Name: Augmenti n Send Method: E-Prescr ibed Sub s Allowed: subs OK Speci al Instruct ion: 1 po bid for 10 days Med icationG enericNa me: Augmenti n Not Available Not Available Not Available ibuprofen 800 mg tablet TAKE 1 TABLET (ORAL) 3 TIMES PER DAY (PAIN) FOR 10 DAYS active Not Available Not Available No t Available dextroamp hetamine- amphetami ne 10 mg tablet TAKE 1 TABLET BY MOUTH IN AFTERNOO N ONCE A DAY active Not Available Not Available No t Available Claritin- D 24 Hour 10 mg-240 mg tablet,ex tended release 05/13 completed Medicati on ID: [id number] B rand Name: Claritin -D 24 Hour Sen d Method: E-Prescr ibed Sub s Allowed: subs OK Medic ationGen ericName : Claritin -D 24 Hour Not Available Not Available Not Available Mapap (acetamin ophen) 500 mg capsule TAKE 2 CAPSULE (ORAL) EVERY 6 HOURS FOR 10 DAYS 05/13 completed Not Available Not Available Not Available dextromet horphan-g uaifenesi n ER 60 mg-1,200 mg tab,exten d release,1 2hr Take 1 tablet by mouth twice a day as needed 05/13 completed Medicati on ID: [id number] D uration Value: 7 Prescri bed By Name: Sowmya Lagunas nd Name: dextrome thorphan -guaifen esin Sen d Method: E-Prescr ibed Sub s Allowed: subs OK Medic ationGen ericName : dextrome thorphan -guaifen esin Not Available Not Available Not Available fluticaso ne propionat e 50 mcg/actua tion nasal spray,hillary pension SPRAY 1 SPRAY INTO EACH NOSTRIL EVERY DAY 05/13 completed Not Available Not Available Not Available dextroamp hetamine- amphetami ne 5 mg tablet TAKE 1 TABLET BY MOUTH IN THE AFTERNOO N ONCE DAILY active Not Available Not Available No t Available Vitals Date Recorded Body height Body mass index (BMI) Body weight Provider Name and Address Organization Details Last Updated DateTime 05/13/2024 177.8 cm 25.8 kg/m2 41984.63 g Lucía Orellana [place] - [facility] 05/13/2024 15:26:58 Date Recorded Body height Body mass index (BMI) Body weight Provider Name and Address Organization Details Last Updated DateTime 06/25/2024 177.8 cm 25.8 kg/m2 15354.63 g Mouna Maria [place] - [facility] 06/25/2024 13:05:52 Social History None recorded. Functional Status None recorded. Mental Status None recorded. Family History Nothing Reported. Medical History No medical history recorded. Past Encounters Encounter ID Performer Location Encounter Start Date Encounter Closed Date Diagnosis/Indication Diagnosis SNOMED-CT Code Diagnosis ICD10 Code Diagnosis Note [id number] RAMY MELGAR MD [facility] [address] [address] 05/13/2024 15:06:22 05/13/2024 16:03:34 Tension-type headache 226106741 G44.209 Snoring 23603702 R06.83 [id number] RAMY MELGAR MD [facility] [address] [address] 06/15/2024 11:03:13 06/15/2024 12:14:09 Tension-type headache 116917373 G44.209 Snoring 74899878 R06.83 Deviated nasal septum 12 2011833 J34.2 [id number] ASUNCION SAUCEDO MD [facility] [address] [place] [address] 06/25/2024 12:41:24 06/25/2024 13:45:59 Deviated nasal septum 697599058 J34.2 The patient is indicated for and a good candidate for septoplast y and inferior turbinate reduction. I discussed the risks, benefits and alternativ es to septoplast y and inferior turbinate reduction. Specifical ly I discussed the risk of bleeding (which may require more procedures or packing), infection, septal perforatio n, septal hematoma which if unrecogniz ed can lead to cosmetic nasal deformity, CSF leak, persistent nasal obstructio n despite surgery, change in appearance of nose if structural support is disrupted, change in sense of smell, and the possibilit y of predisposi tion of future sinus infections . I also discussed the possible need for nasal splints. The patient understand s the risks and would like to proceed. We will schedule surgery mutually convenient time. I discussed he may benefit from a left Maggie graft and he could have a plastic surgery consult to see if this is needed. He will decide if he wants to pursue septo/turb with me or if he wants the plastic surgery consult I offered him. Hypertroph y of nasal turbinates 29820645 J34.3 see above Health Concerns Section Related Observation LastModified by Organization Detai ls LastModified Time None Recorded Concern Status LastModified by Organization Details LastModified Time None Recorded Advance Directives Directive None Recorded Payers Encounter Date Sequence Insurance Name Policy Number Policy Barnes Covered Member ID Barnes Member ID Guarantor Name 05/13/2024 1 [facility] [id number] Ramy Camacho Dussault [id number] 1 Ramy Dussault 06/15/2024 1 [facility] [id number] Ramy Camacho Dussault [id number] 1 Ramy Dussault 06/25/2024 1 [facility] PPDai [id number] Ramy Camacho Dussault [id number] 1 Ramy Umaña Notes Date Note Type Note Provider Name and Address Organization Details Recorded Time 05/13/2024 text/html loud snoringfeel s left facial pressure when wakes in morningdoing some PT exercises for back spasm injurysome breathing exercises and head down positions will cause left sided headachedental xray noted some left sinus issues - no CT sinus imagingmouth breathing due to nasal congestionflonase occasional but poorly tolerated due to agitationneti pot with filtered water 04/21/2024 Home PSG with SMSBMI 26AHI 0.2 PV 05/03/21 Camilla [facility], acute sinusitis tx w afrin, mucinex DM, augmentinsinusitis usually in fall.when lived in [place] his sinus would flare in spring.[place] with mold findings RAMY MELGAR MD [address] [place] [address], [address], [facility] 05/13/2024 16:05:30 06/15/2024 text/html sinus painfeels left facial pressure when wakes in morningdoing some PT exercises for back spasm injurysome breathing exercises and head down positions will cause left sided headachedental xray noted some left sinus issuesmouth breathing due to nasal congestionflonase occasional but poorly tolerated due to agitationneti pot with filtered waterwhen lived in [place] his sinus would flare in spring.[place] allergy testing [place] with mold findings 06/15/[address] sinus - clear sinus. septum sig deviation to right 04/21/2024 Home PSG with SMSBMI 26AHI 0.2 PV 05/13/24 [facility] - snoring with normal home PSG AHI 0.2, hold discussion of surgery on septum. requested ct sinus RAMY MELGAR MD [address] [facility],[place] [address], [place], [address], [place] - [facility] 06/15/2024 12:15:57 06/25/2024 text/html hx of nasal obst ruction refractory to medical management including flonase. He is interested in surgery. Notes left nasal valve collapse as well. ASUNCION SAUCEDO MD [address] [facility] [address], [place], [address], [place] - [facility] 06/25/2024 13:45:27
--- OUTSIDE RECORDS SUMMARY | 2024-10-19 12:16 | XMS_ITS | Data Portability ---
Author Organization ID - [facility], [employer] - [facility] Address [address] [place] [address] Assessment No assessment recorded. Plan of Treatment Reminders Order Date Submit Date Provider Last Modified By Organization Details Last Modified Time Details Appointments None recorded. Lab None recorded. Referral None recorded. Procedures None recorded. Surgeries None recorded. Imaging None recorded. Medication Orders dextroamph etamine-am phetamine 20 mg tablet 2018 019 INTERFACE [email or web address] #[id number], [address] [facility], [place], [id number], 9 16:56:41 dextroamph etamine-am phetamine 20 mg tablet 2018 019 INTERFACE [email or web address] #62858, [address] [facility], [place], [id number], 9 16:56:40 dextroamph etamine-am phetamine 20 mg tablet 2018 019 INTERFACE [facility] #95271, [address] [facility], [place], [id number], 9 16:56:40 cyclobenza francisco 10 mg tablet [address] [facility], [address] [facility], [place], [id number], 9 16:31:02 Kenalog 40 mg/mL suspension for injection 2018 019 [email or web address] Not available 9 16:31:07 ketorolac 60 mg/2 mL intramuscu lar solution 2018 019 [email or web address] Not available 9 16:31:10 meloxicam 15 mg tablet [email or web address] [facility], [address], [place], [place], [id number], 9 16:31:13 fluticason e propionate 50 mcg/actuat ion nasal spray,susp ension 2018 019 INTERFACE [facility] #66430, [address], [place], [place], [id number], 9 16:31:15 azelastine 137 mcg (0.1 %) nasal spray 2018 019 INTERFACE [facility] #49645, [address], [place], [place], [id number], 9 16:31:18 dextroamph etamine-am phetamine 20 mg tablet 2018 019 INTERFACE [facility] #36749, [address], [place], [place], [id number], 9 16:31:22 dextroamph etamine-am phetamine 20 mg tablet 2017 018 INTERFACE [facility] #15521, [address], [place], [place], [id number], 8 12:55:30 fluticason e propionate 50 mcg/actuat ion nasal spray,susp ension 2017 018 INTERFACE [facility] #46675, [address], [place], [place], [id number], 8 18:51:18 azelastine 137 mcg (0.1 %) nasal spray 2017 018 INTERFACE [facility] #53972, [address], [place], [place], [id number], 8 18:51:24 Zyrtec 10 mg tablet 2017 018 INTERFACE [facility] #63156, [address], [place], [place], [id number], 8 18:51:16 dextroamph etamine-am phetamine 20 mg tablet 2017 018 INTERFACE [facility] #68708, [address], [place], [place], [id number], 8 18:38:37 dextroamph etamine-am phetamine 20 mg tablet 2017 018 INTERFACE [facility] #37457, [address], [place], [place], [id number], 8 12:53:39 dextroamph etamine-am phetamine 20 mg tablet 2017 018 INTERFACE [facility] #16524, [address], [place], [place], [id number], 8 12:54:01 dextroamph etamine-am phetamine 20 mg tablet 2017 018 INTERFACE [facility] #35513, [address], [place], [place], [id number], 8 12:55:32 Patient TargetsNo targets recorded. Patient Instructions Encounter Date Encounter Id Patient Instructions Last Modified By Organization Details Last Modified Time 10/09/2017 [id number] seasonal allergies: care instructions [email or web address] Not available 10/09/2017 12:53:21 attention defici t hyperactivity disorder (ADHD) in adults: care instructions [email or web address] Not available 10/09/2017 12:53:21 Coordination of Care/Counseling re: Conditions and Treatment options; Discussed with patient > 50% of time for 25+ minutes [email or web address] Not available 10/09/2017 12:55:20 01/13/2018 [id number] attention defici t hyperactivity disorder (ADHD) in adults: care instructions [email or web address] Not available 01/13/2018 18:38:25 Coordination of Care/Counseling re: Conditions and Treatment options; Discussed with patient > 50% of time for 15+ minutes [email or web address] Not available 01/13/2018 18:37:57 04/24/2018 [id number] Coordination of Care/Counseling re: Conditions and Treatment options; Discussed with patient > 50% of time for 15+ minutes [email or web address] Not available 04/24/2018 12:53:38 08/06/2018 [id number] sciatica: care instructions [email or web address] Not available 08/06/2018 16:31:06 Coordination of Care/Counseling re: Conditions and Treatment options; Discussed with patient > 50% of time for 25+ minutes [email or web address] Not available 08/06/2018 16:31:11 10/30/2018 [id number] Coordination of Care/Counseling re: Conditions and Treatment options; Discussed with patient > 50% of time for 15+ minutes [email or web address] Not available 10/30/2018 16:59:23 Reason for Referral None Reported. Problems Name Problem SNOMED Code Status Onset Date Resolution Date Notes Provider Name and Address Organization Details Recorded Time Attention deficit hyperacti vity disorder 235216648 Active 2016 MARIAN Valentine, [facility] 7 10:58:38 Seasonal allergic rhinitis 794175262 Active 2016 MARIAN Valentine, [facility] 7 10:58:51 Lactose intoleran ce Active 2016 MARIAN Valentine, [facility] 7 10:59:52 Snoring 99367083 Active 2016 Chris Linder MD null, [facility] 7 11:36:51 Elevated blood-pre ssure reading without diagnosis of hypertens ion 579733611 Active 2016 Chris Linder MD null, [facility] 7 11:36:52 Depressio n screening Completed 201606/26/2017 Conchita Root RIPRAP PLACER-C null, [facility] 7 11:30:24 Administr ation of diphtheri a, pertussis , and tetanus vaccine Completed 201606/26/2017 Conchita Root RIPRAP PLACER-C null, [facility] 7 11:30:44 Body mass index 25-29 - overweigh t 076298651 Active 2016 bmi 25.7 MARIAN Montes null, [facility] 9 16:32:34 Partner relations hip problem 30887107636 00 Completed 201606/26/2017 Con[facility] 7 11:30:20 Long-term drug therapy Completed 201606/26/2017 Conchita Root RIPRAP PLACER-C null, [facility] 7 11:32:53 Overweigh t 442222029 Active 2016 Conchita Root [facility] 7 11:30:59 Varicose veins of lower extremity 62758179 Active 2017 Conchita Root [employer]RAP PLACER[facility]C [facility] 8 18:41:46 Problem Notes None recorded. Procedures Surgical History Date Name Laterality Status Provider Name and Address Organization Details Recorded Time Other completed MARIAN Valentine [facility] 10/23/2016 11:02:25 Imaging Results None recorded. Procedure Notes None recorded. Medical Equipment None Reported. Allergies Allergen ID Allergen Name Allergen Category Reaction Reaction Severity Criticality Documentation Date Start Date Code Code System Note Provider Name and Address Organization Details Recorded Time 10127 lactose food,medi cation Not available Not available Not available 10/23/2016 6211 RxNorm MARIAN Morgan, [facility] 7 10:59:59 Medications Name Sig Start Date Stop Date Status Note LastModified by Organization Details LastModified Time cyclobenzap rine 10 mg tablet take 1 tab by mouth every 8 hours NEEDED for muscle inflammat ion and sciatica 10/30 completed Not Available Not Available Not Available meloxicam 15 mg tablet take 1 tab by mouth ONCE daily WITH FOOD x 7 days for inflammat ion 10/30 completed Not Available Not Available Not Available Zyrtec 10 mg tablet Take 1 tablet every day by oral route. 2017 active Not Available Not Available Not Avai lable Kenalog 40 mg/mL suspension for injection admin 40 mg IM ventroglu teal x dose 10/30 completed Not Available Not Available Not Available dextroamphe tamine-amph etamine 20 mg tablet Take 1 tablet by mouth before breakfast & at lunch for inattenti on, hyperacti vity, task completio n- last fill from Srinivasan NIELSEN active Not Available Not Available No t Available azelastine 137 mcg (0.1 %) nasal spray [place] 2 sprays twice a day by intranasa l route. active Not Available Not Available No t Available ketorolac 60 mg/2 mL intramuscul ar solution admin 60 mg IM ventroglu teal x 1 dose 10/30 completed Not Available Not Available Not Available fluticasone propionate 50 mcg/actuati on nasal spray,suspe nsion Use one spray to each nostril twice daily for allergies active Not Available Not Available No t Available Amphetamine Salt Combo (20mg) Take 1 tab by mouth twice daily 11/20 completed Not Available Not Available Not Available Fluzone Quad 8097-9062 60 mcg (15 mcg x 4)/0.5 mL IM suspension 06/26 completed Not Available Not Available Not Available Vitals Date Recorded Body height Body mass index (BMI) Body weight Respiratory rate Body temperature Heart rate Oxygen saturation Oxygen saturation in Arterial blood by Pulse oximetry Systolic blood pressure Diastolic blood pressure Provider Name and Address Organization Details Last Updated DateTime 8 176.28 cm 25.4 kg/m2 41864.1 5 g 20 /min 97.5 [degF] 87 /min 98 % 98 % 128 mm[Hg] 79 mm[Hg] Angelina Evans Mandeep ID [facility] 8 12:34:25 Date Recorded Body height Body mass index (BMI) Body weight Heart rate Oxygen saturation Oxygen saturation in Arterial blood by Pulse oximetry Respiratory rate Body temperature Systolic blood pressure Diastolic blood pressure Provider Name and Address Organization Details Last Updated DateTime 8 176.28 cm 26.1 kg/m2 78404.0 3 g 82 /min 97 % 97 % 17 /min 98.9 [degF] 138 mm[Hg] 74 mm[Hg] Conchita NERIP-C [facility] 8 18:24:27 Date Recorded Body height Body mass index (BMI) Body weight Oxygen saturation Oxygen saturation in Arterial blood by Pulse oximetry Respiratory rate Body temperature Heart rate Systolic blood pressure Diastolic blood pressure Systolic blood pressure Diastolic blood pressure Provider Name and Address Organization Details Last Updated DateTime 8 176.28 cm 25.6 kg/m2 21653.4 6 g 98 % 98 % 20 /min 97.3 [degF] 74 /min 145 mm[Hg] 90 mm[Hg] 129 mm[Hg] 76 mm[Hg] Angelina Evans [facility] 8 12:41:44 Date Recorded Body height Body mass index (BMI) Body weight Body temperature Heart rate Oxygen saturation Oxygen saturation in Arterial blood by Pulse oximetry Respiratory rate Systolic blood pressure Diastolic blood pressure Provider Name and Address Organization Details Last Updated DateTime 9 176.28 cm 26.5 kg/m2 27900.3 g 97.4 [degF] 89 /min 98 % 98 % 22 /min 142 mm[Hg] 89 mm[Hg] MARIAN Montes [facility] 9 15:56:36 Date Recorded Body height Body mass index (BMI) Body weight Body temperature Heart rate Oxygen saturation Oxygen saturation in Arterial blood by Pulse oximetry Respiratory rate Systolic blood pressure Diastolic blood pressure Provider Name and Address Organization Details Last Updated DateTime 9 176.28 cm 25.7 kg/m2 22599.9 g 97.7 [degF] 81 /min 98 % 98 % 20 /min 132 mm[Hg] 89 mm[Hg] MARIAN Montes [facility] 9 16:32:40 Social History Question Answer Notes LastModified by Organizat ion Details LastModified Time Tobacco Smoking Status Former Smoker Not Available [facility] 05/24/2020 04:04:40 Do You Have An Advance Directive? No [id number] Information not available 05/24/2020 How Much Tobacco Do You Chew? None [id number] Information not available 05/24/2020 Concerns About Meeting Basic Needs (food, Housing, Heat, Etc)? No [email or web address] Information not available 03/14/2017 Are You Currently Employed? Yes [id number] Information not available 05/24/2020 Are You Deaf Or Do You Have Serious Difficulty Hearing? No [id number] Information not available 05/24/2020 Which Illicit Or Recreational Drugs Have You Used? 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 0 [email or web address] Information no t available 03/14/2017 Legally Blind In One Or Both Eyes? No Information no t available 10/23/2016 Live Alone Or With Others? With Others Information not available 10/23/2016 What Was The Date Of Your Most Recent Tobacco Screening? 10/30/2018 [id number] Information not available 05/24/2020 How Many Children Do You Have? 0 [id number] Information not available 05/24/2020 Are You Sexually Active? Yes [id number] Information not available 05/24/2020 How Much Tobacco Do You Smoke? 1 PPW [id number] Information not available 05/24/2020 How Many Years Have You Smoked Tobacco? 5 [id number] Information not available 05/24/2020 Sex: Unknown Functional Status Question Answer Note LastModified by Organizat ion Details LastModified Time Do you have transportation difficulties? No [id number] Information not available 05/24/2020 Urinary incontinence assessment performed? No [email or web address] Information not available 03/14/2017 Are you able to walk? YESWOREST [id number] Information not available 05/24/2020 Are you able to care for yourself? Yes [id number] Information n ot available 05/24/2020 What is your exercise level? Occasional [id number] Information not available 05/24/2020 Mental Status None recorded. Family History Relationship Description Onset Age of this Age Resolved Age Notes LastModified by Organization Details LastModified Time Paternal Grandmother Alzheimer's disease [email or web address] Not available 10/2016 11:03:00 Maternal Uncle Amyotrophic lateral sclerosis [email or web address] Not available 10/2016 11:03:21 Father Well adult [email or web address] Not avai lable 10/23/2016 11:03:34 Father Diverticulit is [email or web address] Not available 10/2016 11:04:17 Mother Well adult [email or web address] Not avai lable 10/23/2016 11:03:34 Mother Diverticulit is [email or web address] Not available 10/2016 11:04:17 Medical History No medical history recorded. Immunizations Vaccine Type Date Status Note Provider Nam e and Address Organization Details Recorded Time Tdap 7 completed Not Available [facility] 08/08/2019 02:54:48 Tdap 7 completed Chris Linder MD null, [facility] 10/23/2016 11:59:35 Influenza, split virus, quadrivalent, preservative 7 completed MARIAN Montes null, [facility] 06/26/2017 11:17:54 Past Encounters Encounter ID Performer Location Encounter Start Date Encounter Closed Date Diagnosis/Indication Diagnosis SNOMED-CT Code Diagnosis ICD10 Code Diagnosis Note [id number] Chris Linder MD [facility] [address] [place] [address] 10/23/2016 10:37:58 10/23/2016 12:26:18 Attention deficit hyperactivity disorder 017177661 F90.9 Establishe d Adult Self Report Scale (ASRS - v 1.1) 10/23/2016:P art A: 3 in shaded area Part B: 3 in shaded area As he is a new patient, requesting schedule II controlled substance, I did due diligence and called his prior provider.. ...I did call Dr. Cabello at but she no longer works for the facility. I did speak to LORETA Hoffman..no issues noted. All urine drugs screens consistent . -Discussed controlled substance agreement / signed today-Disc ussed I/C/R/B/A to Adderall today and he elected to continue -Refill today x 1 month Follow up 1 month for BP check, ECG etc Depression screening 171 359999 Z13.89 Office based screening on 10/23/2016 as follows: BROCK-7: 1 (out of 21) PHQ-2/PHQ- 9: 2 (out of 27) Will continue to screen and rec additional evaluation and Seasonal a llergic rhinitis 193901023 J30.2 Talib lewis, controlled Has AYDE, was seen by allergy/im munology and found to have a mold allergy but he does not remember other specific allergies. He did have pulmonary function testing as well. Now, using Flonase only with good results. Continue Flonase as before Consider additional Tx if clinically appropriat e. Elevated blood-pressure reading without diagnosis of hypertension 521977585 R03.0 Blood pressure 10/23/2016: 142 / 82 sitting L arm adult No prior Dx of HTN He notes that he did not sleep well last night and he suspects that this is the cause Will check BP again in 1 month and rec additional evaluation and Tx as clinically appropriat e Snoring 93513976 R06.83 Talib lewis Snoring, ongoing... has deviated septum, seen by allergy/im munology in the past.... S: + T: + at times O: - P: - B: - A: - N: - G: + STOPBANG 09/26 He will ask his about frequency of apnea (if any). He does feel fatigued during the day but only at times. Will discuss this again in the future.... Consider HST vs other as clinically appropriat e. Administra tion of diphtheria, pertussis, and tetanus vaccine 233897826 Z23 Last TDAP many years ago. Discussed today. He would like immunizati on. Immunizati on provided today without difficulti es. Body mass index 25-29 - overweight 029696120 Z68.29 Most recent BMI: 26.9 on 10/23/2016 Will continue to follow [id number] Chris Linder MD [facility] [address] [place] [id number] 11/20/2016 14:56:21 11/20/2016 15:57:53 Attention deficit hyperactivity disorder 115470397 F90.9 Establishe d Adult Self Report Scale (ASRS - v 1.1) 10/23/2016:P art A: 3 in shaded area Part B: 3 in shaded area Adult Attention Deficit Hyperactiv ity Self Report Screening Scale for DSMS (ASRS-14+) 11/20/2016: Total Score: 7 As he is a new patient, requesting schedule II controlled substance, I did due diligence and called his prior provider.. ...I did call Dr. Cabello at but she no longer works for the facility. I did speak to LORETA Hoffman..no issues noted. All urine drugs screens consistent . -Discussed controlled substance agreement / signed today-Disc ussed I/C/R/B/A to Adderall today and he elected to continue -Refill today x 1 month Follow up 1 month for BP check, ECG etc Elevated blood-pressure reading without diagnosis of hypertension 778459914 R03.0 Blood pressure 10/23/2016: 142 / 82 sitting L arm adult Bloo pressure 11/20/2016: 148/91 No prior Dx of HTN Ambulatory blood pressure monitoring (ABPM) is becoming increasing ly recommende d for routine clinical practice. It may be particular ly useful in evaluating the patient with variable blood pressure readings in the office or in the patient with wide discrepanc ies between the blood pressure readings at home and at the clinician' s office (ie, white coat hypertensi on). ABPM and, in particular , nocturnal blood pressure readings may also provide prognostic data...Pat ients with white coat hypertensi on are also at high risk for developing sustained hypertensi on. In view of the cost and limited availabili ty of ambulatory blood pressure monitoring (ABPM), increasing attention is being given to home monitoring with inexpensiv e ($40 to $60) semi-autom atic devices. Such self-recor ded casual blood pressure measuremen ts taken at home or work correlate more closely with the results of 24-hour or daytime ambulatory monitoring than with the blood pressure taken in the clinician' s office Will check BP again in 1 month and rec additional evaluation and Tx as clinically appropriat e Long-term drug therapy 469659097 Z79.899 On usp stimulants for ADHD and allergic rhinitis Will need routine monitoring including yearly ECG, BP evaluation , intermitte nt UDS vs other as clinically indicated. Snoring 21025658 R06.83 Establishe d Snoring, ongoing... has deviated septum, seen by allergy/im munology in the past.... S: + T: + at times O: - P: - B: - A: - N: - G: + STOPBANG 09/26 He did ask his about frequency of apnea (if any). He does feel fatigued during the day but only at times. She advised that no apnea has been observed. Will discuss this again in the future.... Consider HST vs other as clinically appropriat e. Partner re lationship problem 9852346681 100 Z63.0 In addition, he notes that his would like him to see a counselor due to issues that he had with his dad. He notes that at times he and his will have issues with communicat ion and aggravati ng that she and he suspects is related to issues with [place] with his father. He notes that at times he feels like his talks down to him or scolds him and he becomes defensive and shuts down. His father drank a lot but was not violent or anything like that. These episodes of shutting down is causing issues with the [place] he has with his now. He notes that this is a stress avoidance issue for him. He and his would like referral for counseling to talk about these issues. Referral to [facility] to evaluate and treat as clinically appropriat e [id number] Chris Linder MD [facility] [address] [place] [address] 12/28/2016 14:53:24 12/28/2016 15:44:01 Attention deficit hyperactivity disorder 683327289 F90.9 Establishe d Adult Self Report Scale (ASRS - v 1.1) 10/23/2016:P art A: 3 in shaded area Part B: 3 in shaded area Adult Attention Deficit Hyperactiv ity Self Report Screening Scale for DSMS (ASRS-14+) 11/20/2016: Total Score: 7 As he is a new patient, requesting schedule II controlled substance, I did due diligence and called his prior provider.. ...I did call Dr. Cabello at but she no longer works for the facility. I did speak to LORETA Hoffman..no issues noted. All urine drugs screens consistent . -Discussed controlled substance agreement / signed today-Disc ussed I/C/R/B/A to Adderall today and he elected to continue -Refill today x 3 months Follow up 3 months for BP check, ECG etc Long-term drug therapy 224041309 Z79.899 On terminologist stimulants for ADHD and allergic rhinitis Will need routine monitoring including yearly ECG, BP evaluation , intermitte nt UDS vs other as clinically indicated. Elevated blood-pressure reading without diagnosis of hypertension 721640201 R03.0 Blood pressure 10/23/2016: 142 / 82 sitting L arm adult Blood pressure 11/20/2016: 148/91 Blood pressure 12/28/2016: 135/82 No prior Dx of HTN Ambulatory blood pressure monitoring (ABPM) is becoming increasing ly recommende d for routine clinical practice. It may be particular ly useful in evaluating the patient with variable blood pressure readings in the office or in the patient with wide discrepanc ies between the blood pressure readings at home and at the clinician' s office (ie, white coat hypertensi on). ABPM and, in particular , nocturnal blood pressure readings may also provide prognostic data...Pat ients with white coat hypertensi on are also at high risk for developing sustained hypertensi on. In view of the cost and limited availabili ty of ambulatory blood pressure monitoring (ABPM), increasing attention is being given to home monitoring with inexpensiv e ($40 to $60) semi-autom atic devices. Such self-recor ded casual blood pressure measuremen ts taken at home or work correlate more closely with the results of 24-hour or daytime ambulatory monitoring than with the blood pressure taken in the clinician' s office We did complete a month of ambulatory blood pressure measuremen ts with some variabilit y. The literature describes a normal diurnal variation in blood pressure readings, an effect frequently chronicled by ambulatory pressure records as is noted. However, after review, his mean systolic and diastolic pressures are less than 140/90. He will continue to monitor home blood pressures and will check at each visit in the office as well. Partner re lationship problem 2611200457 100 Z63.0 Establishe joshua At the prior visit, he noted notes that his would like him to see a counselor due to issues that he had with his dad. He notes that at times he and his will have issues with communicat ion and aggravati ng that she and he suspects is related to issues with [place] with his father. He notes that at times he feels like his talks down to him or scolds him and he becomes defensive and shuts down. His father drank a lot but was not violent or anything like that. These episodes of shutting down is causing issues with the [place] he has with his now. He notes that this is a stress avoidance issue for him. We did refer to counseling . He did meet with counseling and has follow up scheduled. . He will continue to follow up with counseling . Depression screening [id number] Z13.89 Office based screening for depression on 12/28/2016 as follows: PHQ-2/PHQ- 9: 0 (out of 6) Office based screening on 10/23/2016 as follows:[place] D-7: 1 (out of 21) PHQ-2/PHQ- 9: 2 (out of 27) Will continue to screen and rec additional evaluation and [id number] Chris Linder MD [facility] [address] [facility] [place] [id number] 03/14/2017 11:17:37 03/14/2017 12:54:33 Otalgia [id number] H92.02 New Onset yesterday but improved. Suspected 2/2 See below Eustachian tube disorder [id number] H69.92 New We discussed this in detail today including routine home care as well as signs and symptoms that should prompt short interval follow up or an urgent visit to the ER. Treatment To deal with ear clogging, discomfort , or pain, you can try: ?Swallowin g, yawning, or chewing gum to relieve the pressure ?Clearing your ears by breathing in and then gently breathing out while holding your nostrils and mouth closed If the symptoms do not go away within a few hours or are severe, I may recommend the following medication s: ?Nasal or oral decongesta nts ?Oral antihistam adrian ?Nasal steroids to relieve nasal congestion and enable the eustachian tube to open ?Pain medication s (eg, acetaminop hen or ibuprofen ) In rare cases, a myringotom y may be necessary. The specialist (ENT) doctor makes an incision in the eardrum to allow the pressure to equalize and the fluid to drain. Seasonal a llergic rhinitis [id number] J30.2 Establishe d, uncontroll ed Current medication s:-Flonase -OTC non-sedati ng antihistam ine (name unknown) Continue Flonase + antihistam ine as noted above. Consider additional if clinically appropriat e (singular vs nasal anti-hista mine vs nasal anticholin ergic vs other.... [id number] Chris Linder MD [place] [id number] [place] [id number] 03/19/2017 14:53:45 03/19/2017 16:56:46 Attention deficit hyperactivity disorder [id number] F90.9 Establishe d Adult Self Report Scale (ASRS - v 1.1) 10/23/2016:P art A: 3 in shaded area Part B: 3 in shaded area Adult Attention Deficit Hyperactiv ity Self Report Screening Scale for DSMS (ASRS-14+) 11/20/2016: Total Score: 7 As he was a new patient, requesting schedule II controlled substance, I did due diligence and called his prior provider.. ...I did call Dr. Cabello at but she no longer works for the facility. I did speak to LORETA Hoffman..no issues noted. All urine drugs screens consistent . -Discussed controlled substance agreement / signed at prior visit-Disc ussed I/C/R/B/A to Adderall today and he elected to continue -Refill today x 3 months Follow up 3 months for BP...consi sarah routine monitoring such as ECG etc Long-term drug therapy [id number] Z79.899 On terminologist stimulants for ADHD and allergic rhinitis Will need routine monitoring including yearly ECG, BP evaluation , intermitte nt UDS vs other as clinically indicated. Elevated blood-pressure reading without diagnosis of hypertension 362937225 R03.0 Blood pressure 10/23/2016: 142 / 82 sitting L arm adult Blood pressure 11/20/2016: 148/91 Blood pressure 12/28/2016: 135/82 Blood pressure 03/19/2017: 135/88 No prior Dx of HTN He has been checking ambulatory BP's at home and he notes that they were all ok. He will continue to monitor home blood pressures and will check at each visit in the office as well. Eustachian tube disorder [id number] H69.92 Establishe d, improved Current medication s: -Flonase -OTC non-sedati ng antihistam ine (name unknown)-O ral decongesta nt He does note that he has had some insomnia related to the decongesta nt but is also taking stimulants as noted. Discussed limiting the amount of oral decongesta nts as well as making sure not taking these close to bedtime and using lowest dose for the shortes period of time possible. [id number] RUIZ HERNANDEZ MD, [facility] [address] [place] [id number] 06/26/2017 11:07:45 06/26/2017 20:07:30 Elevated blood-pressure reading without diagnosis of hypertension [id number] R03.0 MonitorAdd DASH dietCont exercise Attention deficit hyperactivity disorder 609940320 F90.9 Est, good controlNee ds rf Adderall Body mass index 25-29 - overweight 382366386 Z68.25 Est, fair controlCon t exerciseAd d DASH diet Overweight 798435188 E66 .3 Est, fair control Cont exercise Add DASH diet Lactose intolerance 2674 52566 E73.9 Est, good controlCon t avoid triggers Adult heal th examination 828671880 Z00.01 Dental w0hOazm exerciseCo nt sleep 6-8hr Seasonal a llergic rhinitis 558398428 J30.2 Est, acute exacAdd back flonaseAdd azelastine Add Zyrtec QDAdd back salt water gargles Diabetes m ellitus screening 308744261 Z13.1 due Hyperlipid emia screening 840371117 Z13.220 due [id number] RUIZ HERNANDEZ MD, [facility] [address] [place] [id number] 10/09/2017 12:29:46 10/09/2017 13:08:01 Seasonal allergic rhinitis 403176767 J30.2 est stblecont flonase daily,use azelastine prn Attention deficit hyperactivity disorder 319616137 F90.9 est stbleTarge t- focus, apathy, irritabcon t adderall 20 bid of note, anxious affect but denies signif stress beyond $ [id number] [facility] [address] [place] [id number] 01/13/2018 18:19:52 01/13/2018 19:14:16 Attention deficit hyperactivity disorder 608224790 F90.9 Est, good controlNee ds rf Adderall 20 IR BIDTarget: hyperactiv ity, focus-MET Seasonal a llergic rhinitis 921083783 J30.2 Est, fair controlRf flonaseRf azelastine Rf Zyrtec QDAdd back salt water gargles [id number] [place] [id number] 04/24/2018 12:35:10 04/24/2018 14:16:07 Attention deficit hyperactivity disorder 880170703 F90.9 Est, good controlrf Adderall 20 IR BIDTarget: hyperactiv ity, focus, poor task completion -MET [id number] [facility] [address] [place] [id number] 08/06/2018 15:49:51 08/06/2018 16:47:49 Seasonal allergic rhinitis 924499047 J30.2 Est, fair controlSpr ing/Fall exac Rf flonase qdRf azelastine nasal BIDRf Zyrtec QDCont nasal washings Attention deficit hyperactivity disorder 979567333 F90.9 Est, good controlrf Adderall 20 IR BIDTarget: hyperactiv ity, focus, poor task completion -MET Sciatica 45720921 M54.32 Acute,Exac s/p internatio nal flight(+) shooting painAdd kenalog 40 IM x 1Add toradol 60 IM x 1Add meloxicam 15 qd x 7 daysCont gentle stretching [id number] Conchita Root RIPRAP PLACER-C [facility] [address] [place] [id number] 10/30/2018 16:25:13 10/30/2018 17:20:49 Attention deficit hyperactivity disorder 579131666 F90.9 Est, good controlrf Adderall 20 IR BIDTarget: hyperactiv ity, focus, poor task completion -MET Health Concerns Section Related Observation LastModified by Organization Detai ls LastModified Time None Recorded Concern Status LastModified by Organization Details LastModified Time None Recorded Advance Directives Directive N: Payers Encounter Date Sequence Insurance Name Policy Number Policy Barnes Covered Member ID Barnes Member ID Guarantor Name 10/09/2017 1 [employer] [place]PP[place]) [id number] Ramy Holloway Dussault [id number] Ramy Holloway Dussault 01/13/2018 1 [employer] [place]PP[place] [id number] Ramy Holloway Dussault [id number] Ramy Holloway Dussault 04/24/2018 1 [employer] [place]PPO) [id number] Ramy Holloway Dussault [id number] Ramy Holloway Dussault 08/06/2018 1 [employer] (PPO) [id number] Ramy Gonzalezsault [id number] Ramy Holloway Dussault 10/30/2018 1 [employer] (PPO) Ramy Holloway Dussault [id number] Ramy Holloway Dussault Notes Date Note Type Note Provider Name and Address Organization Details Recorded Time 8 text/html Generic HPI TemplateReported bypatient.Notes:AR doing well on flonase for mgmt Qhs.Has azelastine for pollen flares. ADHD. Pt reports good control w Adderall IR 20 BID.No sleep disturbance, no ADRs reported.Target- focus, apathy, irritab Pt had questions about relative w autism, wanted knowledge about rage episodes RUIZ HERNANDEZ MD, [facility] [address], [place], [id number], [place] - [facility] 10/09/2017 13:00:53 8 text/html MED MGMT ADD/ADHD-Adderall refill ADHD-reports currently taking Adderall 20 IR BID. Pt reports good control. Target: hyperactivity, focus. AR- intermittent exac. Pt reports flonase provides good relief of sx. Advised add back Zyrtec. Conchita Root RIPRAP PLACER-C null, [facility] 01/13/2018 18:52:12 8 text/html Generic HPI TemplateReported bypatient.Notes:MED MGMT ADD/ADHD-Adderall refill ADHD-reports currently taking Adderall 20 IR BID. Pt reports good control. Target: hyperactivity, focus, poor task completion. Conchita Root RIPRAP PLACER-C null, [facility] 04/24/2018 13:05:22 9 text/html Generic HPI TemplateReported bypatient.Notes:Med mgmt- Sciatica exac following recent prolonged flight. Pt c/o L sided gluteal, shooting pain radiating to the posterior thigh. Self tx w stretching-little improv. Teaching provided. Discussed medications for mgmt I/C/R/B/SE/AE. ADHD-reports currently taking Adderall 20 IR BID. Pt reports good control. Target: hyperactivity, focus, poor task completion. AR-good control. Reports primarily seasonal exac Spring/Fall, but occ mold sensitivity. Rf flonase, azelastine. Conchita Root RIPRAP PLACER-C null, [facility] 08/06/2018 16:45:05 9 text/html Generic HPI TemplateReported bypatient.Notes:Med mgmt- ADHD-reports currently taking Adderall 20 IR BID. Pt reports good control. Target: hyperactivity, focus, poor task completion. Relocating to [place] in November for 's new job working w family. Conchita Root RIPRAP PLACER-C null, [facility] 10/30/2018 17:05:51
[2024-10-19 12:20] LABS: Alanine Aminotransferase 38 U/L (0-40); Albumin Level 4.3 g/dL (3.5-5.0); Alkaline Phosphatase 65 U/L (39-117); Anion Gap 12 (12-20); Aspartate Amino Transferase 26 U/L (5-37); Bilirubin Total 0.6 mg/dL (0.0-1.0); Blood Urea Nitrogen 11 mg/dL (9-16); Calcium 9.1 mg/dL (8.4-10.2); Carbon Dioxide 26 mmol/L (22-29); Chloride 108 mmol/L (96-108); Cholesterol 162 mg/dL (<200); Estimated Glomerular Filt Rate > 60; Glucose Random 106 mg/dL (60-115); HDL Cholesterol 56 mg/dL (>40); LDL Cholesterol Calculated 89 mg/dL (<100); Potassium 4.1 mmol/L (3.3-5.1); Sodium 142 mmol/L (135-145); Total Protein 7.1 g/dL (6.5-8.0); Triglycerides 87 mg/dL (<150)
[2024-10-19 12:36] LABS: Thyroid Stimulating Hormone 1.09 uIU/mL (0.32-4.0); Vitamin D 25-OH Total 36.6 ng/mL (>30)
== END 2024-10-19 10:48 | disposition home or self-care (01) ==
LOC: HO.LAB 10:47
PROVIDERS: PCP Nurse Practitioner Acute Care; Visit Provider Nurse Practitioner Acute Care
DX: Z00.00 Encounter for general adult medical examination without abnormal findings (principal); E55.9 Vitamin D deficiency, unspecified; Z13.220 Encounter for screening for lipoid disorders; Z13.1 Encounter for screening for diabetes mellitus; Z13.29 Encounter for screening for other suspected endocrine disorder
CPT/HCPCS: 36415; 80053; 80061; 81001; 82306; 83036; 84443; 85025